=== PATIENT | female | born 1985 | race Caucasian/White ===

== ENCOUNTER → 2016-12-15 | Outpatient (CLI) | payer MEDICAID | LOC: RAD 08:40 | PROVIDERS: ATTEND Family Medicine | DX: R92.8 Other abnormal and inconclusive findings on diagnostic imaging of breast (principal) ==

== ENCOUNTER → 2017-01-05 | Outpatient (CLI) | payer MEDICAID ==
[~2017-01-05] MED LIST: GADOBUTROL 7.5 MMOL/7.5 ML (GADAVIST) VIAL IV ONE
--- NOTE | 2017-01-05 12:23 | Diagnostic Imaging Report ---
Bilateral breast ultrasound. INDICATION: Breast tenderness and followup of nodules seen on prior exams. Prior outside studies are reviewed including 04/12/16 and 10/03/15 exams. Findings: The retroareolar region and 4 quadrants of each breast were scanned. In the right breast at 1:00 zone, 3 CM from the nipple there is a 1.1 x 0.7 x 1 cm hypoechoic lobulated mass with no internal vasculature demonstrated. It is similar to the prior studies and is likely related to fibroadenoma. The previously demonstrated adjacent small similar appearing lesion is not seen on the current study. In the left breast at 6:00, zone, 2 cm from the nipple there is a 1.4 x 0.7 x 0.7 CM lobulated hypoechoic lesion. This appears slightly larger compared to the prior study however it maintains well-defined margins and it has central hyperechoic band. This could also be a fibroadenoma or a slightly prominent intramammary lymph node. No other lesions were demonstrated. IMPRESSION: 1. Stable right breast 1.1 cm hypoechoic lesion at 1:00 zone likely represent a fibroadenoma. 2. Left breast 6:00, 1.4 CM hyperechoic lesion larger compared to the prior study is still favored to be benign. A 6 month followup ultrasound is recommended. BI-RADS 3. ACR BI-RADS Category 3: Probably benign findings. Dictated by: Dictated on workstation # [id number]
--- NOTE | 2017-01-05 12:47 | Diagnostic Imaging Report ---
Bilateral diagnostic mammogram. INDICATION: Bilateral breast discharge and left breast lump, swelling and hotness. CAD is utilized. The current study was also evaluated with a Computer Aided Detection (CAD) system. Comparison studies include 10/03/15 exam. FINDINGS: The breasts are composed of heterogeneously dense breast parenchyma, commensurate decrease mammographic sensitivity. Comparison study of 04/23/16 is reviewed in addition to 10/03/15. The studies are of lower resolution, probably an artifact of the transmission of data and not necessarily related to poor quality of the original images. This may decrease the value of comparison although overall no definite adverse development is demonstrated. No suspicious calcifications seen. IMPRESSION: Heterogeneously dense breast parenchyma which may limit mammographic sensitivity. Ultrasound evaluation pending. BI-RADS 0. ACR BI-RADS Category 0: Incomplete. (Needs additional imaging evaluation). Result letter will be mailed to the patient. Note: At least 10% of breast cancer is not imaged by mammography. Dictated by: Dictated on workstation # [id number]
--- NOTE | 2017-01-05 18:15 | Diagnostic Imaging Report ---
TECHNIQUE: Utilizing 1.5 Sydnee magnet, patient was placed in a prone position with 8-channel dual breast coil utilized. Axial STIR precontrasted image and axial T1 fat-sat postcontrast high-resolution images obtained. Sagittal T2-weighted images precontrast, bilaterally, as well. Sagittal vibrant temporal images were obtained pre and post contrast with bolus technique utilized of gadolinium. Images are postcontrast immediately and subsequently for 7 minutes. Pre and post contrasted images are then evaluated with Arithmatica for evaluation of possible angiogenesis. COMPARISON: Abnormal imaging, multiple bilateral masses. COMPARISON: 01/05/2017, 01/12/2016, and 10/03/2015. FINDINGS: The bilateral breasts demonstrate moderate background glandularity. The bilateral breasts demonstrate moderate background enhancement. No significant axillary or internal mammary adenopathy. Minimally visualized portions of the upper abdomen are unremarkable. Several masses are again identified within the right breast. This includes a stable enhancing mass within the upper outer quadrant of the right breast measuring 1.1 x 1.0 cm. An additional stable round enhancing mass within the upper inner quadrant of the right breast is identified measuring 1.0 x 1.0 cm, stable from prior exam. Stable enhancing mass within the right lower inner quadrant measuring 0.8 cm. No new enhancing mass or non-mass enhancement within the right breast. Enhancing 1.2 x 0.7 cm ovoid mass is again seen within the left breast at 6 o'clock. This demonstrates internal hypointense septations. This is unchanged in size since the prior MRI. No new suspicious enhancing mass or non-mass enhancement. IMPRESSION: Multiple stable bilateral breast masses as described above. These are unchanged since the prior MRI from one year prior. These remain probably benign, favored to relate to fibroadenomas. Followup ultrasound is recommended in 6 months to monitor stability. BI-RADS category 3: Probably benign. FOLLOWUP: Bilateral breast ultrasound are recommended in six months to monitor stability of previously noted hypoechoic masses. Dictated by: Dictated on workstation # [id number]
== END ==
LOC: EDUNIT# 12-15 10:15 → RAD 10:41
PROVIDERS: ATTEND Family Medicine
DX: R92.8 Other abnormal and inconclusive findings on diagnostic imaging of breast (principal)
CPT/HCPCS: 77059; 77066

== ENCOUNTER → 2017-06-21 | Outpatient (CLI) | payer MEDICAID ==
--- NOTE | 2017-06-21 11:38 | Diagnostic Imaging Report ---
EXAMINATION: Bilateral breast ultrasound. INDICATION: Followup lesions in both breasts. COMPARISON: 01/05/2017. FINDINGS: A lesion in the left breast at the 6 o'clock zone 2 cm from the nipple measuring 1.4 x 0.8 x 0.7 cm is seen with heterogeneity and lobulated circumscribed margins with no internal vascularity. This is similar to the previous scan. The right breast again demonstrates a circumscribed lobulated hypoechoic lesion at the 1 o'clock zone 3 cm from nipple measuring 1 x 0.7 x 1 cm. No adverse development. IMPRESSION: Stable bilateral likely benign nodules at the 6 o'clock zone in the left breast and at the 1 o'clock zone in the right breast. A 12 month followup ultrasound is recommended to ensure longer-term stability. ACR BI-RADS Category 3: Probably benign findings. Dictated by: Dictated on workstation # [id number]
== END ==
LOC: RAD 08:30
PROVIDERS: ATTEND Family Medicine
DX: N63.0 Unspecified lump in unspecified breast (principal)
CPT/HCPCS: 76642

== ENCOUNTER → 2018-07-27 | Outpatient (CLI) | payer MEDICAID ==
--- NOTE | 2018-07-27 13:29 | Diagnostic Imaging Report ---
Indication: Bilateral nipple discharge. Patient also has a palpable lump in the upper outer left breast. Correlation is made with prior mammograms from 01/05/2017. Bilateral 2-D and 3-D diagnostic mammography was performed with CAD. Both breasts are heterogeneously dense, limiting the sensitivity of mammography. The parenchymal pattern is stable. No malignant-appearing microcalcifications are seen. No new masses identified. At the BB marker in the upper left breast, no underlying abnormality is seen. Impression: BI-RADS 0 Stable bilateral mammograms with no suspicious abnormality seen. Further evaluation of the previously noted areas at the 6 clock location of the left breast and 1 o'clock location of the right breast is recommended with ultrasound. In addition, evaluation of bilateral retroareolar regions is recommended with ultrasound due to patient complaining of bilateral nipple discharge. In addition, ultrasound evaluation of the area of the palpable abnormality in the upper outer left breast is recommended. ACR BI-RADS Category 0: Incomplete. (Needs additional imaging evaluation). Result letter will be mailed to the patient. Note: At least 10% of breast cancer is not imaged by mammography. Dictated by: Dictated on workstation # [id number]
--- NOTE | 2018-07-27 21:33 | Diagnostic Imaging Report ---
INDICATION: Bilateral breast nodules. Patient presents for followup. Patient also reports a new region of palpable abnormality in the upper outer left breast. This will be evaluated with ultrasound as well. COMPARISON: Correlation was made with prior breast ultrasound from 06/21/2017. EXAMINATION: Bilateral breast ultrasound. FINDINGS: Right breast: Previously seen hypoechoic solid-appearing nodule at the 1 o'clock location, 3 cm from the nipple, which measures 10 mm x 7 mm x 10 mm, stable when compared to prior exam. No new abnormality on the right is seen. Retroareolar aspect of the right breast is unremarkable. Left breast: Retroareolar region does demonstrate a small palpable cyst measuring 6 mm x 4 mm. Previously noted mass at the 6 o'clock location, 2 cm from the nipple, is stable at 14 mm x 8 mm x 7 mm. Evaluation of the area of palpable abnormality in the 2 o'clock location of the left breast, 5 cm from the nipple, was performed. There is an area of ovoid circumscribed hypoechogenicity, measuring 7 mm x 4 mm x 6 mm. This has benign features. This is consistent with benign nodule versus fibroglandular tissue. This has similar echogenicity to adjacent fibronodular tissue. No other abnormality is detected. IMPRESSION: Bilateral breast nodules. These appear to be fairly stable when compared with exam from 06/21/2017. No concerning features are identified. No further followup is indicated. ACR BI-RADS Category 2: Benign findings. Result letter will be mailed to the patient. Note: At least 10% of breast cancer is not imaged by mammography. Dictated by: Dictated on workstation # [id number]
== END ==
LOC: RAD 12:49
PROVIDERS: ATTEND Family Medicine
DX: N63.21 Unspecified lump in the left breast, upper outer quadrant (principal); N63.12 Unspecified lump in the right breast, upper inner quadrant; N64.52 Nipple discharge
CPT/HCPCS: 76642; 77066

== ENCOUNTER → 2019-01-12 | Outpatient (CLI) | payer MEDICAID ==
--- NOTE | 2019-01-12 17:33 | Diagnostic Imaging Report ---
INDICATION: Pain in the upper portion of the left breast as well as left axillary portion. Patient also reports lump in the upper inner left breast. COMPARISON: Correlation is made with prior mammogram 07/27/2018 and 01/05/2017. 2-D and 3-D bilateral diagnostic mammography was performed. The current study was also evaluated with a Computer Aided Detection (CAD) system. 3-D tomosynthesis was also performed and reviewed. FINDINGS: Both breasts are heterogeneously dense, limiting sensitivity of mammography. No mass or malignant-appearing microcalcifications are seen. Axillae are unremarkable. IMPRESSION: No mammographic features suspicious for malignancy are identified. Even so, sonographic interrogation of the area of pain in the upper left breast and axilla as well as the area of lump in the upper medial left breast is recommended and will be performed today. ACR BI-RADS Category 0: Incomplete. (Needs additional imaging evaluation). Result letter will be mailed to the patient. Note: At least 10% of breast cancer is not imaged by mammography. Dictated by: Dictated on workstation # [id number]
--- NOTE | 2019-01-12 17:44 | Diagnostic Imaging Report ---
INDICATION: Pain in the upper left breast as well as axillary portion of the left breast. Patient has a palpable lump in the inferior left breast. Further evaluation is performed with ultrasound. Correlation is made with diagnostic mammogram earlier same day. FINDINGS: Sonographic interrogation of the areas of pain and lump was performed. There is a simple-appearing cyst at the 6 o'clock location in the left breast at the area of palpable abnormality measuring 4 mm x 3 mm x 5 mm. There is also a cyst at the 2 o'clock location in left breast measuring 6 mm x 3 mm x 7 mm. This is 2 cm from the nipple. There is a cyst in the retroareolar region measuring 9 mm x 3 mm x 5 mm. No solid mass is seen. IMPRESSION: Multiple left breast cysts at the areas of pain and palpable abnormality. No suspicious abnormality is seen. ACR BI-RADS Category 2: Benign findings. Dictated by: Dictated on workstation # [id number]
== END ==
LOC: RAD 12:25
PROVIDERS: ATTEND Family Medicine
DX: N60.02 Solitary cyst of left breast (principal); N63.22 Unspecified lump in the left breast, upper inner quadrant
CPT/HCPCS: 76642; 77066